=== PATIENT | male | born 1950 | race Caucasian/White ===

== ENCOUNTER → 2022-01-08 09:09 | Outpatient (BNVA) | payer MEDICARE, OTHER, SELFPAY | PROVIDERS: Referring Provider Family Medicine; Visit Provider Orthopaedic Surgery | DX: M17.11 Unilateral primary osteoarthritis, right knee (principal); M25.569 Pain in unspecified knee | CPT/HCPCS: 73560; 73565; 99203; 99204 ==

== ENCOUNTER 2022-02-10 12:18 | Observation (INO) | payer MEDICARE, OTHER, SELFPAY ==
--- NOTE | 2022-02-06 13:24 | ECG_ITS ---
[facility] Test Date: 2022-02-06 Pat Name: Dylon Garcia Department: Room: Gender: Male Pharmacy Informaticist: : 1950 Requested By: Armani Nunez Order Number: [id number] Lauryn MD: Justus Robertson M.D. Measurements Intervals [place] Rate: 77 P: 74 UT: 227 QRS: -21 QRSD: 89 T: 51 QT: 377 QTc: 428 Interpretive Statements SINUS RHYTHM WITH FIRST DEGREE AV BLOCK LOW QRS VOLTAGE IN PRECORDIAL LEADS [QRS DEFLECTION < 1.0 mV IN CHEST LEADS] ANTERIOR MYOCARDIAL INFARCTION , PROBABLY OLD [40+ ms Q WAVE AND/OR ST/T ABNORMALITY IN V3/V4] No previous ECG available for comparison Electronically Signed On 02-06-2022 17:15:15 CDT by Justus Robertson M.D. [id number]
[2022-02-06 13:29] VITALS: BMI 35.7
--- NOTE | 2022-02-06 14:14 | P.ANESASSM_ITS ---
Pre-Anesthetic Assessment Height/Weight: Height 1.73 m Weight 106.594 kg Operation Date: 02/10/22 09:40 Proposed Procedures p Right Total Knee Arthroplasty 27670/M17.11(Right) - Tyrese Barkley MD Familial anesthetic complications: None Was Beta Rogelio taken within 24 hours: N/A Was Clonidine taken within 24 hours: N/A Social No alcohol and No tobacco Exam alert, oriented x 3, clear to auscultation bilaterally and regular rate & rhythm Airway Submandibular: within normal limits Cervical ROM: within normal limits Mallampati: Class II Dentition: false Metabolic Diabetes Mellitus and Morbid Obesity [facility] Lower Back Pain and Osteoarthritis/DJD chronic pain/opioid Anesthetic Plan ASA status: 3 Anesthesia: Regional (specify below) (SAB with adductor blk) Medications/Allergies Home Medications Medication Instructions Recorded Confirmed Last Taken Type gabapentin 300 mg capsule 300 mg PO BID 01/08/22 02/06/22 Unknown History glipizide 10 mg tablet 10 mg PO BID 01/08/22 02/06/22 Unknown History metformin 500 mg tablet 500 mg PO BID 01/08/22 02/06/22 Unknown History semaglutide 1 mg/dose (4 mg/3 mL) 1 mg SUBCUT DIRECTED 01/08/22 02/06/22 Unknown History subcutaneous pen injector (Ozempic) tramadol 50 mg tablet 50 mg PO Q6H PRN 01/08/22 02/06/22 Unknown History hydrocodone 10 mg-acetaminophen 1 tab PO Q6H 02/06/22 02/06/22 Unknown History 325 mg tablet Allergies Allergy/AdvReac Type Severity Reaction Status Date / Time ampicillin Allergy ADR-Fatigue Verified 01/08/22 09:13 d [facility] Anesthesia Social History Smoking and tobacco status: never smoked Data Anesthesia : 02/06/22 13:48 Cardiac Studies: No Data to Display
[2022-02-10] VITALS (10 sets, daily range): BP systolic 119–160; BP diastolic 62–86; PULSE 69–96; RESP 16–18; TEMP 36.4–36.6; O2SAT 92–95
[2022-02-10] MEDS: gabapentin 300 mg Capsule PO ×2 (07:06→17:23)
--- NOTE | 2022-02-10 07:20 | P.HP_ITS ---
Same Day Surgery H&P Indication for Procedure/HPI DATE OF PROCEDURE: February 10, 2022 CHIEF COMPLAINT/INDICATIONFOR SURGICAL PROCEDURE: Osteoarthritis right knee here for right total knee arthroplasty PREOP DIAGNOSIS: Osteoarthritis Right knee. PLANNED PROCEDURE: Operation Date: 02/10/22 09:40 Proposed Procedures p Right Total Knee Arthroplasty 45758/M17.11(Right) - Tyrese Barkley MD 71-year-old here for right total knee arthroplasty. Long history of right knee pain arthroscopy 10 years ago complicated by infection has failed injections and medications. Here for elective right total knee arthroplasty Medications/Allergies* Home Medications Medication Instructions Recorded Confirmed Type gabapentin 300 mg capsule 300 mg PO BID 01/08/22 02/10/22 History glipizide 10 mg tablet 10 mg PO BID 01/08/22 02/10/22 History metformin 500 mg tablet 500 mg PO BID 01/08/22 02/10/22 History semaglutide 1 mg/dose (4 mg/3 mL) 1 mg SUBCUT DIRECTED 01/08/22 02/10/22 History subcutaneous pen injector (Ozempic) tramadol 50 mg tablet 50 mg PO Q6H PRN 01/08/22 02/10/22 History hydrocodone 10 mg-acetaminophen 1 tab PO Q6H 02/06/22 02/10/22 History 325 mg tablet Allergies/Adverse Reactions Allergy/AdvReac Type Severity Reaction Status Date / Time ampicillin Allergy ADR-Fatigue Verified 01/08/22 09:13 d Pertinent History/Comorbid Conditions* Social History Smoking and tobacco status: never smoked Pertinent Exam Findings alert, oriented x 3, clear to auscultation bilaterally, regular rate & rhythm and operative site marked Recommendations Surgery/Procedure today Coding Level of Care Code Acute Print Line Inspector for Alejandrina Zamora
[2022-02-10] MEDS: CELEcoxib 200 mg Capsule 400 MG PO (07:31)
[2022-02-10] MEDS: acetaminophen 500 mg Tablet 1000 MG PO ×2 (07:32→15:29)
[2022-02-10] MEDS: oxyCODONE 20 mg ER (12 HR) Tablet PO (07:32)
[2022-02-10] MEDS: sodium chloride 0.9% 1,000 ML 30 ML IV (07:51)
[2022-02-10 08:01] LABS: Glucose Point of Care 243 mg/dL (70-110)
--- NOTE | 2022-02-10 08:08 | P.ANESUD_ITS ---
Pre-Anesthetic Update Pre-Anesthetic Assessment: Date of Surgery/Procedure: 02/10/22 Preop Trinh gnosis: Osteoarthritis Right knee. Proposed Procedure: Operation Date: 02/10/22 09:40 Proposed Procedures p Right Total Knee Arthroplasty 36799/M17.11(Right) - Tyrese Barkley MD Any changes to Pre-Anesthetic Assessment?: No Last Intake: Intake Last Liquid Date 02/09/22 Last Liquid Time 23:00 Last Solid Date 02/09/22 Last Solid Time 15:00 Vitals: Oxygen Delivery Pa thod 02/10/22 07:36 Exam: Pre-Anes Outpt Exam: alert, oriented x 3, clear to auscultation bilaterally and regular rate & rhythm Cardiac Studies: No Data to Display
--- NOTE | 2022-02-10 08:09 | ANES.PROC ---
Anesthesia Procedures Procedure/Date: 02/10/22 Nerve Block ^: Nerve Block 1: Main Anesthesia: spinal anesthesia block Time Out Performed: Yes Consent: requested by attending/covering physician, from patient, risks and benefits reviewed and patient agrees to proceed Nerve block location: adductor canal (R) Anesthesia monitors applied: pulse oximetry, EKG, BP cuff and oxygen Nerve block position: supine Anesthetic Used: ropivicaine 0.5% (30) and with decadron (4 mg) Ultrasound used to: recognize landmarks and visualize and ID femerol nerve Nerve Stimulator Used?: No Interscalene/Femoral BLK: 4 stimuplex 21 g needle used for position and inplane approach, visualize local anesthetic spread and no vascular puncture identified Injection: neg aspiration of heme Patient Tolerated Procedure: well Complications: none
[2022-02-10] MEDS: insulin regular-human 100 units/1 mL 10 UNIT IVP (08:15)
[2022-02-10 09:33] LABS: Glucose Point of Care 230 mg/dL (70-110)
[2022-02-10] MEDS: tranexamic acid 1,000 mg/10mL SDV 1000 MG IV (10:00)
[2022-02-10] MEDS: tranexamic acid 1,000 mg/10mL SDV 1000 MG XX (10:21)
[2022-02-10] MEDS: EPINEPHrine 1 mg/mL INJ XX (10:22)
[2022-02-10] MEDS: ketorolac 30 mg/mL INJ XX (10:22)
--- NOTE | 2022-02-10 11:47 | P.OP_ITS ---
Operative Report Date of procedure: February 10, 2022 Pre-op diagnosis: Preop Diagnosis Osteoarthritis Right knee. Post-op diagnosis: same Post-op diagnosis: Same Post-op findings: Same Procedure done: Right total knee arthroplasty Implants: Shannan total knee arthroplasty components were used includin) Size 5 triathalon cruciate retaining femoral component 2) Size 5 Tritanium tibial component 3) 32 mm /10 mm thickness Tritanium asymetric patella 4) Size 5/11 mm thickness CR tibial bearing insert Pathology: none sent Surgeon: Tyrese Barkley Anesthesia: Nerve Block (Spinal, adductor canal block) Estimated blood loss (mL): 100 Findings: The patient had eburnated bone over the medial femoral condyle medial tibial plateau patella and trochlea Condition: stable Disposition: PACU Procedure: The patient was taken to the operating room. Patient was given 1 g of tranexamic acid . The above anesthesia provided by the anesthesia service. A timeout was performed. The patient was prepped and draped in the usual fashion with the lower extremity exposed. A anterior incision was made, midline, from a point proximal to the patella to the distal tibial tubercle. The knee was entered through a medial parapatellar approach. The patella could be displaced laterally and the knee flexed. The patellar fat pad was resected to provide better visibility. Retractors were placed medially and laterally adjacent to the tibial plateau. The femoral canal was drilled in line with the longitudinal axis of the femur. Intramedullary femoral guide for used to make a distal femoral cut in 5 degrees of valgus, resecting 8 mm from the more prominent condyle. Next the extra medullary tibial guide was placed in alignment with the longitudinal axis of the tibia. The cutting guides were set to remove just over 9 mm from the high tibial plateau. The proximal tibia was then cut. The femoral measuring guide was then placed over the distal femur. Rotation was verified checking the relationship of the guide to the condyle and the trochlear groove. The femur was measured and cut for the desired femoral component. The desired tibial baseplate was then chosen. A trial reduction with the femur tibial baseplate and polyethylene was done, assuring that the knee was stable throughout full motion. Ligament balancing involved nothing more than a release of the deep medial collateral ligament and resection of medial osteophyte tibia was prepared for the tibial baseplate. Patellar thickness was then measured. The patella was cut removing articular cartilage and prepared for appropriate size patellar button. surfaces were cleaned with a gentamicin solution. The femur tibia and patella were then press- fit into place. The posterior capsule and collateral ligaments were then injected with a solution of 100 mL of 0.2% ropivacaine, 1 mL of a 1:1000 epinephrine solution, 30 mg of Toradol, and 1 g of tranexamic acid. Final polyethylene component was then snapped into place into the tibia. The extensor retinaculum was closed with a running 1 Stratafix interrupted 1 Ethibond. The subcutaneous tissues were closed with 2-0 Vicryl and the skin was closed with a running 4-0 Stratafix. The wound was covered with a Dermabond Prineo dressing. It was covered with 4xrs and a compressive Tubigauze was applied. The patient was taken to recovery room in stable condition.
--- NOTE | 2022-02-10 11:53 | XRR_ITS ---
PROCEDURE INFORMATION: Exam: XR Right Knee Exam date and time: 02/10/2022 12:52 PM Age: 71 years old Clinical indication: Device placement; Joint replacement hardware; Prior surgery; Surgery date: Post-operative (0-2 days); Additional info: Right total knee arthroplasty TECHNIQUE: Imaging protocol: XR Right knee. Views: 1 or 2 views. COMPARISON: CR (KNEE LAT, KNEE, KNEE LAT) 01/08/2022 9:21 AM FINDINGS: Bones/joints: The patient is status post right total knee arthroplasty with patellar resurfacing. No evidence of hardware related complication. No fracture or dislocation. Expected postoperative soft tissue changes noted. Soft tissues: See Bones/joints finding. XR/XR knee RT 1-2V [id number] IMPRESSION: Status post right total knee arthroplasty, without evidence of hardware related complication.
[2022-02-10 12:09] LABS: Glucose Point of Care 269 mg/dL (70-110)
[2022-02-10] MEDS: insulin lispro 100 unit/1 mL SUBCUT ×3 (13:09→21:27)
--- NOTE | 2022-02-10 14:11 | ANE.PACU2 ---
Inpatient post-anesthesia follow up: Airway intact: Yes Vital signs: Temperature 97.9 F Pulse Rate 72 Respiratory Rate 18 Blood Pressure 141/79 Pulse Oximetry 93 Oxygen Delivery Me thod Room Air Oxygen Flow Rate 5 Fraction of Inspir ed Oxygen Hydration adequate: Yes Nausea and vomiting: No Pain level: 2 Mental status: Baseline
[2022-02-10 16:58] LABS: Glucose Point of Care 176 mg/dL (70-110)
[2022-02-10] MEDS: CELEcoxib 200 mg Capsule PO (21:15)
[2022-02-10 21:20] LABS: Glucose Point of Care 491 mg/dL (70-110)
[2022-02-11] MEDS: acetaminophen 500 mg Tablet 1000 MG PO ×2 (00:36→08:50)
[2022-02-11] MEDS: sodium chloride 0.9% 1,000 ML 100 ML IV (00:37)
[2022-02-11 03:14] VITALS: BP 150/79; PULSE 105; RESP 16; TEMP 36.9; O2SAT 95
[2022-02-11 03:15] VITALS: BP 167/87; PULSE 84; RESP 16; TEMP 36.4; O2SAT 94
[2022-02-11 04:00] VITALS: BP 148/80; PULSE 90; RESP 14; TEMP 36.8; O2SAT 95
[2022-02-11 04:34] LABS: Hemoglobin 12.5 g/dL (11.7-16.6)
--- NOTE | 2022-02-11 07:17 | P.DS_ITS ---
Discharge Providers Date of Admission: 02/10/22 12:18 Date of Discharge: February 11, 2022 Attending Provider at Admission: Tyrese Villalobos MD Attending Provider at Discharge: Tyrese Villalobos MD Primary Care Provider: Mony Givens DO Diagnoses at Discharge Discharge Diagnosis (1) Osteoarthritis of right knee: Status: Acute (2) Status post total right knee replacement: Status: Acute (3) Diabetes: Status: Acute Reason for Visit Reason for Visit: Brief History: Mr. Garcia with progressive right knee pain. He failed previous medical management including narcotics and a distant knee arthroscopy. He was admitted for elective right total knee arthroplasty Hospital Course Hospital Course The patient tolerated surgery well. They remained hemodynamically stable. They was begun on aspirin and Kytril compression dressing for DVT prophylaxis. The patient was mobilized with therapy beginning the day of surgery and by the first postoperative day independent with the walker. As the pain was adequately controlled and they were fully mobile they were discharged home. Physical Exam Narrative: On the day of discharge the knee incision was clean. They had no drainage. There is minimal swelling in the thigh and knee and the calf. No distal neurovascular deficits were noted Urinary Catheter Management: Shrestha: Cath Placed During This Visit: yes Reason for Continuing Indwelling Catheter: Required Immobilization for Trauma or Surgery or Anesthesia Urinary Catheter Date of Insertion: 02/10/22 Urinary Catheter Time of Insertion: 10:00 Discharge Data Studies Completed and Pending Completed Studies During Hospitalization Category Date Time Status XR knee RT 1-2V 26511 Stat Exams 02/10/22 11:53 Completed Radiology Impressions Knee X-Ray 02/10/22 11:53 IMPRESSION: Status post right total knee arthroplasty, without evidence of hardware related complication. Laboratory Results Hgb 12.5 g/dL (11.7-16.6) 02/11/22 04:15 Sodium Cancelled 02/06/22 13:48 Potassium Cancelled 02/06/22 13:48 Chloride Cancelled 02/06/22 13:48 Carbon Dioxide Cancelled 02/06/22 13:48 Anion Gap Cancelled 02/06/22 13:48 BUN Cancelled 02/06/22 13:48 Creatinine Cancelled 02/06/22 13:48 GFR Calculation Cancelled 02/06/22 13:48 Glucose Cancelled 02/06/22 13:48 POC Glucose 491 mg/dL (70-110) H 02/10/22 21:12 Calculated Osmolality Cancelled 02/06/22 13:48 Calcium Cancelled 02/06/22 13:48 Vitals Last Vital Signs Temp 98.3 F 02/11/22 04:00 Pulse 90 02/11/22 04:00 Resp 14 02/11/22 04:00 BP 148/80 02/11/22 04:00 Pulse Ox 95 02/11/22 04:00 Discharge Plan Discharge Patient Disposition: Home Condition: Stable Prescriptions: New oxycodone 5 mg Tablet 10 mg PO Q4H PRN (Reason: Severe Pain) 7 Days 0RF acetaminophen 500 mg Tablet 1,000 mg PO Q8H 14 Days Qty: 84 0RF celecoxib 200 mg Capsule 200 mg PO Q12H 14 Days Qty: 28 0RF aspirin 325 mg Tablet,Delayed Release (Dr/Ec) 325 mg PO DAILY 30 Days 0RF Continued metformin 500 mg tablet 500 mg PO BID 0RF glipizide 10 mg tablet 10 mg PO BID 0RF tramadol 50 mg tablet 50 mg PO Q6H PRN (Reason: Pain) 0RF gabapentin 300 mg capsule 300 mg PO BID 0RF Ozempic 1 mg/dose (4 mg/3 mL) pen injector 1 mg SUBCUT DIRECTED 0RF Rx Instructions: q 7 days Discontinued hydrocodone-acetaminophen 10-325 mg tablet 1 tab PO Q6H 0RF Discharge Orders: Discharge Order (Routine); Ordered 02/11/22 Ordered By: Tyrese Villalobos Referrals: Tyrese Villalobos MD [Physician] - 02/13/22 8:00 am Discharge Diet: Advance as tolerated Discharge Activity: Limit activity as instructed Patient Instructions: Revision Total Joint Arthroplasty (DC), Opioid Safety, Post Operative Pain Activity Restrictions/Additional Instructions: Okay to shower Keep Tubigauze sleeve in place for swelling. Okay to remove for hygiene. Apply FirstIce up to 20 min/hr for pain and swelling Take Celebrex twice a day for the next 15 days for pain , discontinue other anti-inflammatories Take Tylenol 500mg (2 tabs) as needed 3 times a day for mild pain take oxycodone for breakthrough pain. Exercises per physical therapy. May weight-bear as tolerated on total knee arthroplasty IF HAVE ANY PROBLEMS OR QUESTIONS CALL [facility] AT AND ASK TO HAVE DR. VILLALOBOS PAGED. Discharge Attestations Time Spent in Discharge Care*: other Quality Metrics Clinical Quality Measures [ No reported AMI, CVA or VTE this stay] Coding Level of Care Code Acute [facility] note Diagnoses Osteoarthritis of right knee M17.11 Status post total right knee replacement Z96.651 Diabetes E11.9
[2022-02-11 07:54] LABS: Glucose Point of Care 224 mg/dL (70-110)
[2022-02-11] MEDS: insulin lispro 100 unit/1 mL SUBCUT (08:50)
[2022-02-11] MEDS: CELEcoxib 200 mg Capsule PO (08:50)
[2022-02-11] MEDS: gabapentin 300 mg Capsule PO (08:50)
[2022-02-11] MEDS: aspirin 325 mg EC Tablet PO (09:06)
[2022-02-11] MEDS: docusate sodium 100 mg Capsule PO (09:06)
[2022-02-11 10:47] VITALS: RESP 18
[2022-02-11] MEDS: oxyCODONE 5 mg IR Tab/Cap 10 MG PO (10:47)
[2022-02-11 11:05] VITALS: BP 208/98; PULSE 80; RESP 20
[2022-02-11 11:15] VITALS: BP 208/98; PULSE 80; RESP 20
--- NOTE | 2022-02-11 11:19 | PC.NURSE ---
CALLED DR. VILLALOBOS ABOUT PATIENT'S BLOOD PRESSURE AND HE SAID THAT HE WAS GOOD FOR DISCHARGE AND TO FOLLOW UP WITH REGULAR DOCTOR ABOUT BLOOD PRESSURES.
== END 2022-02-11 11:15 | disposition home or self-care (01) ==
LOC: OBGYN 12:22
PROVIDERS: Admitting Provider Orthopaedic Surgery; PCP Family Medicine; Visit Provider Orthopaedic Surgery
PROC: (CPT 27447; principal; 2022-02-10 09:20)
DX: M17.11 Unilateral primary osteoarthritis, right knee (principal); E11.9 Type 2 diabetes mellitus without complications; E66.01 Morbid (severe) obesity due to excess calories; Z68.35 Body mass index [BMI] 35.0-35.9, adult; G89.29 Other chronic pain; Z79.891 Long term (current) use of opiate analgesic
CPT/HCPCS: 27447; 36415; 36416; 51702; 64447; 73560; 76942; 82962; 85018; 93005; 96372; 97110; 97116; 97161; 97165; C1776; G0378; J0171; J1100; J1580; J1815; J1885; J2250; J2704; J2795; J3010; J7030

== ENCOUNTER → 2022-03-19 12:54 | Outpatient (BNVA) | payer MEDICARE, OTHER, SELFPAY | PROVIDERS: Family Provider Orthopaedic Surgery; PCP Family Medicine; Visit Provider Orthopaedic Surgery | DX: Z96.651 Presence of right artificial knee joint (principal) | CPT/HCPCS: 73560; 73565; 99024 ==

== ENCOUNTER 2022-03-20 11:24 | Outpatient (RCR) | payer MEDICARE, OTHER, SELFPAY | END 2022-04-06 23:59 | disposition home or self-care (01) | LOC: SPT 11:24 | PROVIDERS: Absent Provider Orthopaedic Surgery; Family Provider Orthopaedic Surgery; PCP Family Medicine; Referring Provider Orthopaedic Surgery; Visit Provider Orthopaedic Surgery | DX: Z96.651 Presence of right artificial knee joint (principal) | CPT/HCPCS: 97110; 97161 ==

== ENCOUNTER 2022-04-07 06:00 | Outpatient (RCR) | payer MEDICARE, OTHER, SELFPAY | END 2022-04-22 23:59 | disposition home or self-care (01) | LOC: SPT 06:00 | PROVIDERS: PCP Family Medicine; Referring Provider Orthopaedic Surgery; Visit Provider Orthopaedic Surgery | DX: Z47.1 Aftercare following joint replacement surgery (principal); Z96.651 Presence of right artificial knee joint | CPT/HCPCS: 97110 ==

== ENCOUNTER → 2022-04-16 14:58 | Outpatient (BNVA) | payer MEDICARE, OTHER, SELFPAY | PROVIDERS: PCP Family Medicine; Visit Provider Orthopaedic Surgery | DX: Z96.651 Presence of right artificial knee joint (principal) | CPT/HCPCS: 99024 ==

== ENCOUNTER 2024-09-29 17:26 | Inpatient (IN) | payer MEDICARE, SELFPAY ==
[2024-09-29] VITALS (13 sets, daily range): BP systolic 97–161; BP diastolic 56–87; PULSE 69–96; RESP 16–18; TEMP 36.3–36.6; O2SAT 92–98; BMI 37.2
--- NOTE | 2024-09-29 17:36 | XRR_ITS ---
PROCEDURE INFORMATION: Exam: XR Chest Exam date and time: 09/29/2024 6:10 PM Age: 73 years old Clinical indication: Chest wall pain; Additional info: Chest pains and weakness upon standing today. TECHNIQUE: Imaging protocol: Radiologic exam of the chest. Views: 1 view. COMPARISON: No relevant prior studies available. FINDINGS: Lungs: Unremarkable. No consolidation. Pleural spaces: Unremarkable. No pleural effusion. No pneumothorax. Heart/Mediastinum: Unremarkable. No cardiomegaly. Bones/joints: Unremarkable. XR/XR chest 1V portable [id number] IMPRESSION: No acute findings.
--- NOTE | 2024-09-29 18:37 | ECG_ITS ---
[facility]: 2024-[facility]29 Pat Name: Dylon Garcia Department: Room: Gender: Male Legal Aide: : 1950 Requested By: Shakeel Agustin Order Number: [id number] Lauryn MD: Manuelito Ventura M.D. Measurements Intervals [place] Rate: 79 P: -1 ND: 209 QRS: 0 QRSD: 78 T: -22 QT: 377 QTc: 434 Interpretive Statements SINUS RHYTHM WITH OCCASIONAL SUPRAVENTRICULAR PREMATURE COMPLEXES LOW QRS VOLTAGE IN PRECORDIAL LEADS [QRS DEFLECTION < 1.0 mV IN CHEST LEADS] POSSIBLE ANTERIOR MYOCARDIAL INFARCTION , OF INDETERMINATE AGE [30 ms Q WAVE IN V3/V4, OR R < 0.2 mV IN V4] Compared to ECG 02/06/2022 12:36:16 First degree AV block no longer present Myocardial infarct finding still present Electronically Signed On 09-30-2024 08:58:26 [employer]LEOMARGARINE MAKER by Manuelito Ventura M.D. [id number]
[2024-09-29 20:04] LABS: Basophils % 0.1 %; Hematocrit 51.6 % (37-53); Lymphocytes # 1.9 10^3/uL (0.8-4.8); Lymphocytes % 27.2 %; Mean Corpuscular Hemoglobin 28.3 pg (27-33); Mean Corpuscular Volume 88.4 fl (82-101); Mean Platelet Volume 10.8 fL (7.4-10.4); Monocytes # 0.7 10^3/uL (0.2-0.9); Monocytes % 9.6 %; Neutrophils # 4.36 10^3/uL (1.8-7.7); Neutrophils % 62.8 %; Nucleated Red Blood Cells % 0 %; Platelet Count 239 10^3/cmm (157-399); Red Blood Count 5.84 10^6/uL (3.85-5.65); Red Cell Distribution Width 12.4 % (12.1-15.1); White Blood Count 6.95 10^3/uL (3.29-11.43)
[2024-09-29 20:04] LABS: Bilirubin Urine Negative (Negative); Blood Urine Negative (Negative); Glucose Urine UA 3+ (Normal); Ketones Urine 1+ (Negative); Leukocyte Esterase Urine Negative (Negative); Nitrate Urine Negative (Negative); Protein Urine Trace (Negative); Urine Appearance Clear (CLEAR); Urine Color Yellow (Yellow); Urobilinogen Urine 0.2 mg/dL (Negative)
[2024-09-29 20:09] LABS: Add Urine Microscopic? YES
[2024-09-29 20:18] LABS: Alanine Aminotransferase 21 U/L (0-41); Albumin Level 4.3 g/dL (3.5-5.2); Alkaline Phosphatase 85 U/L (40-130); Anion Gap 27.4 (5-19); Aspartate Amino Transferase 36 U/L (0-40); Blood Urea Nitrogen 51 mg/dL (8-23); Calcium 9.4 mg/dL (8.5-10.5); Carbon Dioxide 16 mmol/L (22-29); Chloride 92 mmol/L (98-107); Creatinine Clr Calc Pharmacy 54.6199; Globulin 4.2 g/dL (1.3-4.6); Glucose 297 mg/dL (65-115); Lipase 43 U/L (13-60); Osmolality Calculated 297 mOsm/kg (285-295); Potassium 4.4 mmol/L (3.5-5.1); Sodium 131 mmol/L (136-145); Total Bilirubin 0.9 mg/dL (0.15-1.2); Total Protein 8.5 g/dL (6.6-8.7)
[2024-09-29 20:28] LABS: Specific Gravity, Urine 1.031 (1.005-1.030)
[2024-09-29 20:29] LABS: UA Manual Slide Review YES; UA Slide Review UA Slide Review Perf
[2024-09-29 20:30] LABS: Add Urine Culture? Yes; Bacteria Urine TRACE /hpf; Squamous Epithelial Cell Urine 0-4 /hpf (0-5)
--- NOTE | 2024-09-29 20:56 | CTR_ITS ---
PROCEDURE INFORMATION: Exam: CT Head Without Contrast Exam date and time: 09/29/2024 9:17 PM Age: 73 years old Clinical indication: Altered mental status/memory loss; Patient HX: General weakness with confusion. Frequent falls. ; Additional info: Encephalopathy, altered mental status TECHNIQUE: Imaging protocol: Computed tomography of the head without contrast. Radiation optimization: All CT scans at this facility use at least one of these dose optimization techniques: automated exposure control; mA and/or kV adjustment per patient size (includes targeted exams where dose is matched to clinical indication); or iterative reconstruction. COMPARISON: No relevant prior studies available. RADIATION DOSE METRICS: Total DLP (mGy-cm): 1125.23 FINDINGS: Brain: No acute intracranial hemorrhage. No acute territorial region of vazquez-white dedifferentiation. No extra-axial collection. No mass effect or midline shift. Mild burden of nonspecific white matter hypoattenuation, most commonly sequela of chronic microvascular ischemic change. Generalized parenchymal volume loss. Cerebral ventricles: No acute hydrocephalus. Paranasal sinuses: Mild mucosal thickening scattered throughout the paranasal sinuses. No fluid levels. Mastoid air cells: Visualized mastoid air cells are well aerated. Orbital cavities: No acute abnormality of the visualized orbits. Bones: No acute calvarial fracture. Soft tissues: No acute abnormality. CT/CT head wo con* [id number] IMPRESSION: No acute intracranial hemorrhage, evidence of acute territorial infarct, or mass effect.
--- NOTE | 2024-09-29 20:59 | ED_ITS ---
HPI - Altered Mental Status 2 General: Chief Complaint: Altered Mental Status Stated Complaint: ams Time Seen by Provider: 09/29/24 20:28 History of Present Illness: 73-year-old man who presents emergency r oom with worsening confusion over the last several days. He has a history of diabetes and obesity. Family says he has had episodes at night where he is called and been extremely confused. Particularly last night. He finally said today he needed to come to the emergency room. Currently now he is close to his baseline. He is some worsening forgetfulness at this time and some mild confusion. He is alert and oriented however. Sugar has been high lately. He has been complaining of orthostasis and dizziness. No focal motor deficits. No known fevers. No abdominal pain. No chest pain. Related Data Home Medications Medication Instructions Recorded Confirmed gabapentin 300 mg capsule 300 mg PO BID 01/08/22 04/16/22 glipizide 10 mg tablet 10 mg PO BID 01/08/22 04/16/22 metformin 500 mg tablet 500 mg PO BID 01/08/22 04/16/22 semaglutide 1 mg/dose (4 mg/3 mL) 1 mg SUBCUT DIRECTED 01/08/22 04/16/22 subcutaneous pen injector (Ozempic) tramadol 50 mg tablet 50 mg PO Q6H PRN Pain 01/08/22 04/16/22 Previous Rx's Medication Instructions Recorded oxycodone 5 mg tablet 5 mg PO Q4H PRN pain 7 days #30 02/20/22 tabs Allergies Allergy/AdvReac Type Severity Reaction Status Date / Time ampicillin Allergy ADR-Fatigue Verified 09/29/24 18:35 d Review of Systems 2 Narrative: Constitutional symptoms: Negative except as documented in HPI. Skin symptoms: Negative except as documented in HPI. Eye symptoms: Negative except as documented in HPI. ENMT symptoms: Negative except as documented in HPI. Respiratory symptoms: Negative except as documented in HPI. Cardiovascular symptoms: Negative except as documented in HPI. Gastrointestinal symptoms: Negative except as documented in HPI. Genitourinary symptoms: Negative except as documented in HPI. Musculoskeletal symptoms: Negative except as documented in HPI. Neurologic symptoms: Negative except as documented in HPI. Psychiatric symptoms: Negative except as documented in HPI. Endocrine symptoms: Negative except as documented in HPI. PFSH ED 2 PFSH: Medical History Diabetes Social History Smoking and tobacco/nicotine status: never used tobacco/nicotine Physical Exam 2 Narrative: General: Alert, no acute distress. Skin: Warm, dry. Head: Normocephalic, atraumatic. Neck: Supple, trachea midline. Eye: Extraocular movements are intact. Ears, nose, mouth and throat: mucosa moist. Cardiovascular: Regular, Normal peripheral perfusion. Respiratory: Lungs are clear to auscultation, respirations are non-labored, breath sounds are equal, Symmetrical chest wall expansion. Gastrointestinal: Soft, Nontender, Non distended Musculoskeletal: Normal ROM, no deformity. Neurological: Alert and oriented, No focal neurological deficit observed. Psychiatric: Cooperative, appropriate mood & affect. Course 2 Vital Signs: Vital signs: Vital Signs Temperature 97.4 F L 09/29/24 18:28 Pulse Rate 96 09/29/24 18:28 Respiratory Rate 16 09/29/24 18:28 Blood Pressure 131/66 09/29/24 22:00 Pulse Oximetry 94 09/29/24 22:00 MDM - Altered Mental Status Medical Decision Making Medical decision making: Differential diagnosis including but not limited to and based on the above HPI, review of systems and physical exam: In this patient with altered mental status: Stroke. Hypoglycemia. Metabolic encephalopathy. Infections such as pneumonia, urinary tract infection, Covid-19, Influenza. Electrolyte abnormalities such as hypernatremia. Renal failure / uremia. Hepatic encephalopathy. Hypoxemia. Hypercapnic respiratory failure. Psychosis. Drug or alcohol intoxication. Medication overdose. Orders placed to evaluate differential diagnosis based on the above differential, HPI and physical exam Lab Review: Laboratory results were reviewed and interpreted by myself the emergency room physician. No leukocytosis. No anemia. He does have significant elevation in his BUN and creatinine at 50 and 1.5. Glucose is elevated at 300. Bicarb is low at 16. AB.3 12/03/1979 on room air. I reviewed the patient's medical record. I obtain records from [facility]. He had an appointment a few months back and his BUN/creatinine were normal at that time. 22 and 1.07. Reexamination: Patient remained stable. No increased work of breathing. No altered mental status. No focal motor deficits. Consultation: I spoke with the hospitalist on-call Dr. Noel who agrees to admission. Assessment and plan: Acute renal insufficiency Hyperglycemia Dehydration Poorly controlled diabetes Encephalopathy ?Normal saline bolus in the emergency room. -I discussed the patient with the hospitalist on-call who is admitting the patient. - Discussed findings and plan with patient. Answered any questions. - All laboratory values were reviewed and interpreted personally by myself, the ER physician - All imaging was reviewed and interpreted personally by myself, the ER physician. - Evaluation and treatment of this problem were appropriate in the emergency setting Lab Data 09/29/24 19:52 09/29/24 19:52 Radiology Impressions Chest X-Ray 09/29/24 17:36 IMPRESSION: No acute findings. Head CT 09/29/24 20:56 IMPRESSION: No acute intracranial hemorrhage, evidence of acute territorial infarct, or mass effect. Laboratory Results WBC 6.95 10^3/uL (3.29-11.43) 09/29/24 19:52 RBC 5.84 10^6/uL (3.85-5.65) H 09/29/24 19:52 Hgb 16.50 g/dL (11.27-16.99) 09/29/24 19:52 Hct 51.6 % (37-53) 09/29/24 19:52 MCV 88.4 fl (82-101) 09/29/24 19:52 MCH 28.3 pg (27-33) 09/29/24 19:52 MCHC 32.0 g/dL (30-55) 09/29/24 19:52 RDW 12.4 % (12.1-15.1) 09/29/24 19:52 Plt Count 239 10^3/cmm (157-399) 09/29/24 19:52 MPV 10.8 fL (7.4-10.4) H 09/29/24 19:52 Neut % (Auto) 62.8 % 09/29/24 19:52 Lymph % (Auto) 27.2 % 09/29/24 19:52 [place] % (Auto) 9.6 % 09/29/24 19:52 Eos % (Auto) 0.0 % 09/29/24 19:52 Baso % (Auto) 0.1 % 09/29/24 19:52 Neut # (Auto) 4.36 10^3/uL (1.8-7.7) 09/29/24 19:52 Lymph # (Auto) 1.9 10^3/uL (0.8-4.8) 09/29/24 19:52 [place] # (Auto) 0.7 10^3/uL (0.2-0.9) 09/29/24 19:52 Eos # (Auto) 0.0 10^3/uL (0.0-0.8) 09/29/24 19:52 Baso # (Auto) 0.0 10^3/uL (0.0-0.1) 09/29/24 19:52 Nucleated RBC % (auto) 0 % 09/29/24 19:52 Nucleated RBCs # 0.0 /100WBC 09/29/24 19:52 Specimen Type Arterial 09/29/24 21:07 Sample Site Brachial, right 09/29/24 21:07 ABG pH 7.33 (7.35-7.45) L 09/29/24 21:07 ABG pCO2 27.8 mmHg (35-45) L 09/29/24 21:07 ABG pO2 80.3 mmHg (80.0-100.0) 09/29/24 21:07 ABG HCO3 14.6 mmol/L (22-26) L 09/29/24 21:07 ABG O2 Saturation 96.4 09/29/24 21:07 ABG Base Excess -9.6 mmol/L (-2.0-2.0) L 09/29/24 21:07 Tutu Test N/a 09/29/24 21:07 A-a O2 Gradient 4.6 mmHg (5-10) L 09/29/24 21:07 Hematocrit 48.1 % (42-52) 09/29/24 21:07 Hgb O2 Saturation 94.7 % (95-100) L 09/29/24 21:07 Carboxyhemoglobin 1.0 %THgb (0.4-20.1) 09/29/24 21:07 Methemoglobin 0.7 % (0.4-1.5) 09/29/24 21:07 Total Hemoglobin 15.7 g/dL (14-18) 09/29/24 21:07 Sodium 133.0 mmol/L (131-143) 09/29/24 21:07 Potassium 4.7 mmol/L (3.5-5.0) 09/29/24 21:07 Glucose 298.0 mg/dL (70-115) H 09/29/24 21:07 Ionized Calcium 1.2 mmol/L (1.1-1.4) 09/29/24 21:07 O2 Delivery Device Room air 09/29/24 21:07 [employer]inery Operator ID [email or web address] 09/29/24 21:07 Sodium 131 mmol/L (136-145) L 09/29/24 19:52 Potassium 4.4 mmol/L (3.5-5.1) 09/29/24 19:52 Chloride 92 mmol/L (98-107) L 09/29/24 19:52 Carbon Dioxide 16 mmol/L (22-29) L 09/29/24 19:52 Anion Gap 27.4 (5-19) H 09/29/24 19:52 BUN 51 mg/dL (8-23) H 09/29/24 19:52 Creatinine 1.5 mg/dL (0.7-1.2) H 09/29/24 19:52 GFR Calculation Not Reportable 09/29/24 19:52 Glucose 297 mg/dL (65-115) H 09/29/24 19:52 Calculated Osmolality 297 mOsm/kg (285-295) H 09/29/24 19:52 Lactic Acid 1.8 mmol/L (0.5-2.2) 09/29/24 21:10 Calcium 9.4 mg/dL (8.5-10.5) 09/29/24 19:52 Total Bilirubin 0.9 mg/dL (0.15-1.2) 09/29/24 19:52 AST 36 U/L (0-40) 09/29/24 19:52 ALT 21 U/L (0-41) 09/29/24 19:52 Alkaline Phosphatase 85 U/L (40-130) 09/29/24 19:52 Total Protein 8.5 g/dL (6.6-8.7) 09/29/24 19:52 Albumin 4.3 g/dL (3.5-5.2) 09/29/24 19:52 Globulin 4.2 g/dL (1.3-4.6) 09/29/24 19:52 Lipase 43 U/L (13-60) 09/29/24 19:52 Urine Color Yellow (Yellow) 09/29/24 19:48 Urine Appearance Clear (CLEAR) 09/29/24 19:48 Urine pH 5.0 (5-7) 09/29/24 19:48 Ur Specific [place] 1.031 (1.005-1.030) H 09/29/24 19:48 Urine Protein Trace (Negative) A 09/29/24 19:48 Urine Glucose (UA) 3+ (Normal) H 09/29/24 19:48 Urine Ketones 1+ (Negative) H 09/29/24 19:48 Urine Blood Negative (Negative) 09/29/24 19:48 Urine Nitrate Negative (Negative) 09/29/24 19:48 Urine Bilirubin Negative (Negative) 09/29/24 19:48 Urine Urobilinogen 0.2 mg/dL (Negative) 09/29/24 19:48 Ur Leukocyte Esterase Negative (Negative) 09/29/24 19:48 Urine RBC 5-10 /hpf (0-2) H 09/29/24 19:48 Urine WBC None /hpf (0-5) 09/29/24 19:48 Ur Squamous Epith Cells 0-4 /hpf (0-5) H 09/29/24 19:48 Amorphous Sediment Not Reportable 09/29/24 19:48 Urine Bacteria Trace /hpf (NONE) 09/29/24 19:48 Urine Yeast 1+ /hpf H 09/29/24 19:48 All radiology interpretation(s) finalized by discharge Discharge Plan Discharge Patient Disposition: Admitted As Inpatient Clinical Impression: Acute uremia, Acute renal insufficiency, Hyperglycemia, Poorly controlled diabetes mellitus Condition: Stable Coding Level of Care Code ED Education Paraprofessional for Alejandrina Zamora
[2024-09-29 21:17] LABS: ABG PCO2 27.8 mmHg (35-45); ABG PH Result 7.33 (7.35-7.45); Alveolar-Arterial Oxygen Gradi 4.6 mmHg (5-10); Arterial Blood Gas Hematocrit 48.1 % (42-52); Base Excess ABG -9.6 mmol/L (-2.0-2.0); Blood Gas Sample Site Brachial, right; Blood Gas Sample Type Arterial; HCO3 ABG 14.6 mmol/L (22-26); HGB O2 Sat 94.7 % (95-100); Ionized Calcium Level - ABG 1.2 mmol/L (1.1-1.4); Methemoglobin 0.7 % (0.4-1.5); Oxygen Device ROOM AIR; Oxygen Saturation ABG 96.4; PO2 ABG 80.3 mmHg (80.0-100.0); Potassium Level - ABG 4.7 mmol/L (3.5-5.0); Total Hemoglobin 15.7 g/dL (14-18)
[2024-09-29 21:35] LABS: Lactic Sepsis W/Reflex 1.8 mmol/L (0.5-2.2)
[2024-09-29] MEDS: sodium chloride 0.9% 1,000 ML 999 ML IV (21:43)
--- NOTE | 2024-09-29 22:06 | PM.HP ---
Providers/Chief Complaint Admitting Physician: Erin Noel MD Primary Care Provider: Mony Givens DO Chief Complaint: ams History of Present Illness Dylon Garcia is a 73 yo man w/ diabetes who was brought to [facility]'s ED on 09/29/2024 by his son for falls, syncope, insomnia, generalized weakness, in the last week and this morning, a BG of 310. He sates that his [id number] had encouraged him to go to the doctor, but he was not ready; however, today, he was feeling worse instead of better, so he decided to go to [facility], who referred him to the hospital. He endorses a headache, poor appetite for the last month, but he states that his weight has been the same. He endorses blurry vision, He states that in the past month, anytime he exerts himself he feels non-pleuritic, substernal chest pain that radiates down both arms and improves when he sits down. He endorses dyspnea w/ the CP, but denies palpitations. He denies abd pain,n/v, 3-4episodes of watery melenic stools. He then changed and said that the dolor was dark brown. He denies fever, chills, symptoms. He states that he gets lonely because he lost his two years ago, but denies anxiety, depression, SI or HI. He tells me that he does not feel that the medications, prescribed to him is working. He tells me that he is on Toujeo 15 units daily. In the ED, his vital signs were within normal limits. His labs were significant for hyponatremia, and a possible MADONNA, Cr of 1.5, unclear baseline. CT head was negative. His CXR was also negative. Review of Systems Const: Reports: change in appetite (poor) and malaise; Denies: fever(s), chills, change in weight or diaphoresis Eyes: Reports: blurry vision ENMT: Reports: nasal discharge and nasal congestion; Denies: odynophagia or ear or mastoid pain Card: Reports: chest pain; Denies: palpitations, edema or swelling of feet/ankles Resp: Reports: dyspnea (whenever he coughs) and wheezing; Denies: non-productive cough GI: Reports: melena; Denies: abdominal pain, nausea, vomiting or hematochezia : Denies: difficulty urinating, dysuria, urinary frequency or urinary urgency Musc: Reports: other (no myalgias); Denies: joint pain Skin/Breast: Denies: rash or new lesions Neuro: Reports: headache(s), frequent falls and other Psych: Denies: anxiety, depression, suicidal ideation or homicidal ideation Endo: Reports: cold intolerance; Denies: heat intolerance [place]/Lymph: Denies: easy bruising or easy bleeding Medications/Allergies Home Medications Medication Instructions Recorded Confirmed Last Taken Type gabapentin 300 mg capsule 300 mg PO BID 01/08/22 04/16/22 02/10/22 History glipizide 10 mg tablet 10 mg PO BID 01/08/22 04/16/22 02/09/22 History metformin 500 mg tablet 500 mg PO BID 01/08/22 04/16/22 02/09/22 History semaglutide 1 mg/dose (4 mg/3 mL) 1 mg SUBCUT DIRECTED 01/08/22 04/16/22 02/09/22 History subcutaneous pen injector (Ozempic) tramadol 50 mg tablet 50 mg PO Q6H PRN Pain 01/08/22 04/16/22 02/09/22 History oxycodone 5 mg tablet 5 mg PO Q4H PRN pain 7 days #30 02/20/22 04/16/22 Unknown Rx tabs Allergies Allergy/AdvReac Type Severity Reaction Status Date / Time ampicillin Allergy ADR-Fatigue Verified 09/29/24 18:35 d PFSH Acute PFSH: Medical History (Updated 09/30/24 @ 05:53 by Mireya Noel MD) Head injury Cervical vertebral fracture Diabetes Surgical History (Updated 09/30/24 @ 04:45 by Mireya Noel MD) History of cataract surgery Status post right knee replacement Family History (Updated 09/30/24 @ 04:45 by Mireya Noel MD) Mother Cancer Social History (Updated 09/30/24 @ 04:46 by Mireya Noel MD) Smoking and tobacco/nicotine status: never used tobacco/nicotine Alcohol intake: never Substance/Drug Use: never Vitals/I&O/Wt Last Vital Signs Temp 97.4 F L 09/29/24 18:28 Pulse 96 09/29/24 18:28 Resp 16 09/29/24 18:28 BP 130/66 09/29/24 18:28 Pulse Ox 96 09/29/24 18:28 Weight last 48 hrs Weight 111.13 kg Physical Exam Const: GENERAL APPEARANCE: cooperative and comfortable ORIENTATION/CONSCIOUSNESS: Yes awake, Yes oriented to person, Yes oriented to place and Yes oriented to time HENMT: HEAD & SCALP: normal to inspection, normocephalic and atraumatic NOSE: Normal external nose present EXTERNAL EAR: Yes external ears normal MOUTH: Normal oral and palatal mucosa present THROAT: posterior oropharynx normal Eye: OTHER: PERRL, EOMI, conjunctiva normal b/l Neck/C-Spine: GENERAL: Yes normal visual inspection and Yes trachea midline THYROID: Thyroid normal CAROTIDS: No bruit CERVICAL SPINE: Yes cervical ROM normal Lymph: OTHER: No cervical or supra clavicular LAD. Resp: OTHER: CTAB with no wheezes rales or rhonchi. Cardio: OTHER: RRR, no murmurs, rubs, gallops or clicks. 2+ radial and DP pulses appreciated. No carotid bruits bilaterally. GI: OTHER: BS+, NT, ND, no guarding, no rigidity, no rebound tenderness, no hepatosplenomegaly. Extremity: GENERAL: No clubbing, No cyanosis and No edema Neuro: CRANIAL NERVES: Yes CN normal except as noted SPEECH: speech normal SENSORY EXAM: No sensory level loss detected MOTOR EXAM: 5/5 motor strength present throughout and Normal motor muscle tone present throughout Psych: APPEARANCE: Yes grossly normal ATTITUDE: Yes calm and Yes engaged ACTIVITY/MOTOR BEHAVIOR: Yes appropriate eye contact SPEECH: Yes normal speech MOOD & AFFECT: Yes euthymic mood THOUGHT PROCESS: Normal thought process present THOUGHT CONTENT: Yes Normal thought content present ATTENTION/CONCENTRATION: Yes attention grossly intact Skin: GENERAL SKIN EXAM: no rashes or lesions noted Data 09/29/24 19:52 09/29/24 19:52 Micro: Microbiology 09/29/24 21:12 Blood Culture - Preliminary Blood SPECIMEN COLLECTED 09/29/24 21:10 Blood Culture - Preliminary Blood SPECIMEN COLLECTED A&P Assessment and plan (1) Acute renal insufficiency: (2) Poorly controlled diabetes mellitus: (3) Hyponatremia: Plan Dylon Garcia is a 73 yo man w/ diabetes who was brought to [facility]'s ED on 09/29/2024 by his son for falls, syncope, insomnia, generalized weakness, in the last week and this morning, a BG of 310. #Possible MADONNA: Unclear baseline. Consider reaching out to his PCP to obtain the last BMP on their file for him. Start NS at 125cc/hr #IDDM2: Gave Insulin lispro 10units subq x 1 and Insulin glargine 10units subq x 1. Start Insulin glargine 15units daily w/ medium dose SSI qAC and qHS. F/u A1c. #Hyponatremia: Likely hypovolemia. Continue to monitor #UTI: F/u UCx. Started Ceftriaxone DVT: Lovenox Attestations Medical Necessity Statement*: >2 midnights are needed for the patient's MADONNA, possible UTI, poorly controlled diabetes. Coding Level of Care Code 53171 Diagnoses Acute renal insufficiency N28.9 Poorly controlled diabetes mellitus E11.65 Hyponatremia E87.1
[2024-09-29] MEDS: insulin glargine 100 units/1 mL 10 UNIT SUBCUT (23:35)
[2024-09-29] MEDS: insulin lispro 100 unit/1 mL 10 UNIT SUBCUT (23:35)
[2024-09-29] MEDS: cefTRIAXone 1,000 mg SDV 1000 MG IVP (23:35)
[2024-09-29] MEDS: enoxaparin 40 mg/0.4 mL Syringe SUBCUT (23:35)
[2024-09-29] MEDS: sodium chloride 0.9% 1,000 ML 125 ML IV (23:36)
[2024-09-30 03:26] VITALS: BP 133/72; PULSE 80; RESP 16; TEMP 36.8; O2SAT 93
[2024-09-30] MEDS: acetaminophen 325 mg Tablet 650 MG PO (03:48)
[2024-09-30 04:29] LABS: Glucose Point of Care 141 mg/dL (70-110)
[2024-09-30 04:44] LABS: Basophils % 0.1 %; Hematocrit 44.9 % (37-53); Lymphocytes # 1.7 10^3/uL (0.8-4.8); Lymphocytes % 24.6 %; Mean Corpuscular HGB Conc 33.4 g/dL (30-55); Mean Corpuscular Hemoglobin 28.2 pg (27-33); Mean Corpuscular Volume 84.6 fl (82-101); Monocytes # 0.7 10^3/uL (0.2-0.9); Monocytes % 9.9 %; Neutrophils # 4.56 10^3/uL (1.8-7.7); Neutrophils % 65.1 %; Nucleated Red Blood Cells % 0 %; Platelet Count 186 10^3/cmm (157-399); Red Blood Count 5.31 10^6/uL (3.85-5.65); Red Cell Distribution Width 12.4 % (12.1-15.1)
[2024-09-30 05:12] LABS: Alanine Aminotransferase 18 U/L (0-41); Albumin Level 3.7 g/dL (3.5-5.2); Alkaline Phosphatase 70 U/L (40-130); Anion Gap 21.9 (5-19); Aspartate Amino Transferase 35 U/L (0-40); Blood Urea Nitrogen 49 mg/dL (8-23); Calcium 8.8 mg/dL (8.5-10.5); Carbon Dioxide 18 mmol/L (22-29); Chloride 99 mmol/L (98-107); Creatinine Clr Calc Pharmacy 63.0229; Globulin 3.1 g/dL (1.3-4.6); Glucose 136 mg/dL (65-115); Magnesium 2.1 mg/dL (1.7-2.3); Osmolality Calculated 295 mOsm/kg (285-295); Phosphorus 2.8 mg/dL (2.5-4.5); Potassium 3.9 mmol/L (3.5-5.1); Sodium 135 mmol/L (136-145); Thyroid Stimulating Hormone 1.44 uIU/mL (0.27-4.20); Total Bilirubin 0.6 mg/dL (0.15-1.2); Total Protein 6.8 g/dL (6.6-8.7)
--- NOTE | 2024-09-30 05:33 | US_ITS ---
WS: [id number] RENAL ULTRASOUND HISTORY: Possible MADONNA COMPARISON: None available. TECHNIQUE: 2-D and color Doppler imaging of the kidney submitted. Right kidney: 8.8 cm x 5.0 cm x 5.3 cm. Cortex: 1.2 cm Low normal size kidney. Mild increased echogenicity. No obstruction or mass. Left kidney: 10.8 cm x 5.2 cm x 7.1 cm. Cortex: 1.2 cm Normal size kidney with mild increased echogenicity. No obstruction or mass. Aorta: Normal. Urinary Bladder: Normal distention. US/US renal BI* [id number] IMPRESSION: 1. Mild chronic medical renal disease. 2. Low normal size RIGHT kidney. 3. No obstruction or mass.
[2024-09-30 05:51] LABS: Estmated Average Glucose 295; Hemoglobin A1C 11.9 % (4.0-6.0)
[2024-09-30 06:24] LABS: Glucose Point of Care 110 mg/dL (70-110)
[2024-09-30 08:00] VITALS: BP 148/51; PULSE 80; RESP 15; TEMP 36.7; O2SAT 95
[2024-09-30] MEDS: sodium chloride 0.9% 1,000 ML 125 ML IV ×2 (08:14→16:42)
[2024-09-30] MEDS: insulin glargine 100 units/1 mL 15 UNIT SUBCUT (09:34)
[2024-09-30 12:00] VITALS: BP 119/63; PULSE 67; RESP 14; TEMP 36.4; O2SAT 95
[2024-09-30 12:03] LABS: Glucose Point of Care 211 mg/dL (70-110)
[2024-09-30] MEDS: insulin lispro 100 unit/1 mL SUBCUT ×2 (12:28→21:01)
[2024-09-30] MEDS: enoxaparin 40 mg/0.4 mL Syringe SUBCUT (12:28)
[2024-09-30 16:00] VITALS: BP 125/73; PULSE 70; RESP 15; TEMP 36.7; O2SAT 92
[2024-09-30 17:22] LABS: Glucose Point of Care 107 mg/dL (70-110)
--- NOTE | 2024-09-30 17:31 | P.PN_ITS ---
Subjective 2 Subjective: Patient was seen this morning, he is alert and oriented x 3, following all commands he is a bit drowsy, responses are a bit elevated but overall he tells me he is doing well, no complaints no back pain, no nausea, no vomiting, no fever, he ambulates, no falls, he lives across his son Vitals/I&O/Wt Last Vital Signs Temp 98.1 F 09/30/24 16:00 Pulse 70 09/30/24 16:00 Resp 15 09/30/24 16:00 BP 125/73 09/30/24 16:00 Pulse Ox 92 09/30/24 16:00 O2 Del Method Room Air 09/30/24 16:00 09/30/24 09/30/24 09/30/24 06:59 14:59 22:59 Intake Total 1220 / 1220 2035 1000 / 3036 Balance 1220 / 1220 2035 1000 / 3036 Weight last 48 hrs Weight 111.13 kg Weight 111.13 kg Weight 111.13 kg Physical Exam 2 Const: COMMON NORMALS: no acute distress and patient oriented x3 Resp: COMMON NORMALS: normal respiratory effort, No retractions, No use of accessory muscles and clear to auscultation bilaterally AUSCULTATION: clear to auscultation bilaterally Cardio: COMMON NORMALS: regular rate, regular rhythm, S1 normal heart sound present and S2 normal heart sound present RATE: regular rate RHYTHM: r egular rhythm HEART SOUNDS: S1 normal heart sound present and S2 normal heart sound present GI: COMMON NORMALS: Normal to inspection, nondistended, normoactive bowel sounds present and non-tender Extremity: COMMON NORMALS: no pedal edema Neuro: COMMON NORMALS: patient oriented x3 Data 09/30/24 03:44 09/30/24 03:44 Micro: Microbiology 09/29/24 21:12 Blood Culture - Preliminary Blood SPECIMEN COLLECTED 09/29/24 21:10 Blood Culture - Preliminary Blood SPECIMEN COLLECTED A&P Assessment and plan (1) Acute renal insufficiency: (2) Poorly controlled diabetes mellitus: (3) Hyponatremia: Plan Dylon Garcia is a 73 yo man w/ diabetes who was brought to [facility]'s ED on 09/29/2024 by his son for falls, syncope, insomnia, generalized weakness, in the last week and this morning, a BG of 310. #Possible MADONNA: 1.3, iv fluids -renal us US/US renal BI* [id number] IMPRESSION: 1. Mild chronic medical renal disease. 2. Low normal size RIGHT kidney. 3. No obstruction or mass. #IDDM2: a1c 11.9 -lantus 15 units qam -LDSS #Hyponatremia: likely dehydration -IVF #UTI: -Ceftriaxone -follow urine culture DVT: Lovenox Attestations 2 Medical Necessity Statement*: Patient requires hospitalization for MADONNA, UTI, hyponatremia Diagnoses Acute renal insufficiency N28.9 Poorly controlled diabetes mellitus E11.65 Hyponatremia E87.1
[2024-09-30] MEDS: gabapentin 300 mg Capsule PO (17:56)
[2024-09-30 19:43] LABS: C.Diff PCR (Lab) NEGATIVE (Negative)
[2024-09-30 19:46] VITALS: BP 128/70; PULSE 79; RESP 18; TEMP 36.8; O2SAT 95
[2024-09-30] MEDS: benzonatate 100 mg Capsule 200 MG PO (20:01)
[2024-09-30 20:51] LABS: Glucose Point of Care 311 mg/dL (70-110)
[2024-09-30] MEDS: cefTRIAXone 1,000 mg SDV 1000 MG IVP (22:13)
[2024-10-01] VITALS: BP 137/77; PULSE 72; RESP 20; TEMP 36.5; O2SAT 97
[2024-10-01] MEDS: sodium chloride 0.9% 1,000 ML 125 ML IV (02:26)
[2024-10-01 04:00] VITALS: BP 128/50; PULSE 73; RESP 18; TEMP 36.8; O2SAT 94
[2024-10-01 05:28] LABS: Basophils % 0.2 %; Hematocrit 41.7 % (37-53); Lymphocytes # 1.7 10^3/uL (0.8-4.8); Lymphocytes % 35.5 %; Mean Corpuscular HGB Conc 33.8 g/dL (30-55); Mean Corpuscular Hemoglobin 28.5 pg (27-33); Mean Corpuscular Volume 84.2 fl (82-101); Mean Platelet Volume 10.3 fL (7.4-10.4); Monocytes # 0.4 10^3/uL (0.2-0.9); Monocytes % 8.8 %; Neutrophils # 2.68 10^3/uL (1.8-7.7); Neutrophils % 55.1 %; Nucleated Red Blood Cells % 0 %; Platelet Count 175 10^3/cmm (157-399); Red Blood Count 4.95 10^6/uL (3.85-5.65); Red Cell Distribution Width 12.4 % (12.1-15.1); White Blood Count 4.87 10^3/uL (3.29-11.43)
[2024-10-01 05:59] LABS: Alanine Aminotransferase 17 U/L (0-41); Albumin Level 3.2 g/dL (3.5-5.2); Alkaline Phosphatase 61 U/L (40-130); Anion Gap 14.9 (5-19); Aspartate Amino Transferase 32 U/L (0-40); Blood Urea Nitrogen 25 mg/dL (8-23); Calcium 8.8 mg/dL (8.5-10.5); Carbon Dioxide 20 mmol/L (22-29); Chloride 109 mmol/L (98-107); Creatinine Clr Calc Pharmacy 85.0561; Glucose 82 mg/dL (65-115); Magnesium 1.9 mg/dL (1.7-2.3); Osmolality Calculated 293 mOsm/kg (285-295); Phosphorus 2.6 mg/dL (2.5-4.5); Potassium 3.9 mmol/L (3.5-5.1); Sodium 140 mmol/L (136-145); Total Bilirubin 0.6 mg/dL (0.15-1.2); Total Protein 6.2 g/dL (6.6-8.7)
[2024-10-01 06:36] LABS: Glucose Point of Care 97 mg/dL (70-110)
[2024-10-01 07:25] VITALS: BP 119/64; PULSE 78; RESP 16; TEMP 36.6; O2SAT 95
[2024-10-01] MEDS: sertraline 50 mg Tablet 25 MG PO (09:38)
[2024-10-01] MEDS: insulin glargine 100 units/1 mL 15 UNIT SUBCUT (09:39)
[2024-10-01] MEDS: gabapentin 300 mg Capsule PO (09:39)
[2024-10-01 11:42] VITALS: BP 162/84; PULSE 77; RESP 15; TEMP 36.7; O2SAT 98
[2024-10-01 11:56] LABS: Glucose Point of Care 226 mg/dL (70-110)
[2024-10-01] MEDS: insulin lispro 100 unit/1 mL SUBCUT (12:43)
[2024-10-01] MEDS: sodium chloride 0.9% 1,000 ML 75 ML IV (12:44)
[2024-10-01] MEDS: enoxaparin 40 mg/0.4 mL Syringe SUBCUT (12:44)
[2024-10-01] MEDS: benzonatate 100 mg Capsule 200 MG PO (12:47)
[2024-10-01] MEDS: ondansetron 2 mg/ML SDV 2 mL 4 MG IVP (13:26)
[2024-10-01] MEDS: HYDROcodone-acetaminophen 5-325 mg Tablet 2 TAB PO (13:26)
[2024-10-01 13:52] LABS: C.Diff PCR (Lab) NEGATIVE (Negative)
--- NOTE | 2024-10-01 14:32 | PM.DCS ---
Discharge Providers Date of Admission: 09/29/24 22:27 Date of Discharge: October 01, 2024 Attending Provider at Admission: Mireya Noel MD Attending Provider at Discharge: Johnson Webb MD Primary Care Provider: Mony Givens DO Diagnoses at Discharge Discharge Diagnosis (1) Acute renal insufficiency: Status: Acute (2) Poorly controlled diabetes mellitus: Status: Acute (3) Hyponatremia: Status: Acute Reason for Visit Reason for Visit: ams Hospital Course Hospital Course This is a 73-year-old male who presents [facility] for complaints of fall, weakness, elevated blood sugars For his UTI he was managed with IV antibiotics, discharged on p.o. antibiotics For his MADONNA received IV fluids, creatinine is improved For his hypovolemic hyponatremia received IV fluids, improved For his type 2 diabetes mellitus, blood sugars were monitored, continue home regimen, diabetic education, follow-up with primary care provider next week and Dr. Hayden in 2 weeks And orthostatic hypotension likely secondary to dehydration, received IV fluids, improved On discharge patient is ambulatory, alert oriented x 3, following all commands no complaints For his diarrhea, C. difficile has been negative twice Physical Exam Const: COMMON NORMALS: no acute distress and patient oriented x3 Resp: COMMON NORMALS: normal respiratory effort, No retractions, No use of accessory muscles and clear to auscultation bilaterally AUSCULTATION: clear to auscultation bilaterally Cardio: COMMON NORMALS: regular rate, regular rhythm, S1 normal heart sound present and S2 normal heart sound present RATE: regular rate RHYTHM: regular rhythm HEART SOUNDS: S1 normal heart sound present and S2 normal heart sound present GI: COMMON NORMALS: Normal to inspection, nondistended, normoactive bowel sounds present and non-tender Extremity: COMMON NORMALS: no pedal edema Neuro: COMMON NORMALS: patient oriented x3 Psych: COMMON NORMALS: mental status grossly normal Discharge Data Studies Completed and Pending Completed Studies During Hospitalization Category Date Time Status CT head wo con* [id number] Stat Cat Scan 09/29/24 20:56 Completed XR chest 1V portable [id number] Stat Exams 09/29/24 17:36 Completed US kidney bilateral [US renal BI* [id number]] Routine Ultrasound 09/30/24 05:33 Completed Pending at discharge Category Date Time Status Blood Culture Stat Lab 09/29/24 21:12 Results Complete Blood Count w/Auto AM LABS Lab 10/02/24 04:00 Ordered Comprehensive Metabolic Panel AM LABS Lab 10/02/24 04:00 Ordered Magnesium AM LABS Lab 10/02/24 04:00 Ordered Phosphorus AM LABS Lab 10/02/24 04:00 Ordered Radiology Impressions Chest X-Ray 09/29/24 17:36 IMPRESSION: No acute findings. Head CT 09/29/24 20:56 IMPRESSION: No acute intracranial hemorrhage, evidence of acute territorial infarct, or mass effect. Renal Ultrasound 09/30/24 05:33 IMPRESSION: 1. Mild chronic medical renal disease. 2. Low normal size RIGHT kidney. 3. No obstruction or mass. Laboratory Results WBC 4.87 10^3/uL (3.29-11.43) 10/01/24 04:58 RBC 4.95 10^6/uL (3.85-5.65) 10/01/24 04:58 Hgb 14.10 g/dL (11.27-16.99) 10/01/24 04:58 Hct 41.7 % (37-53) 10/01/24 04:58 MCV 84.2 fl (82-101) 10/01/24 04:58 MCH 28.5 pg (27-33) 10/01/24 04:58 MCHC 33.8 g/dL (30-55) 10/01/24 04:58 RDW 12.4 % (12.1-15.1) 10/01/24 04:58 Plt Count 175 10^3/cmm (157-399) 10/01/24 04:58 MPV 10.3 fL (7.4-10.4) 10/01/24 04:58 Neut % (Auto) 55.1 % 10/01/24 04:58 Lymph % (Auto) 35.5 % 10/01/24 04:58 [place] % (Auto) 8.8 % 10/01/24 04:58 Eos % (Auto) 0.0 % 10/01/24 04:58 Baso % (Auto) 0.2 % 10/01/24 04:58 Neut # (Auto) 2.68 10^3/uL (1.8-7.7) 10/01/24 04:58 Lymph # (Auto) 1.7 10^3/uL (0.8-4.8) 10/01/24 04:58 [place] # (Auto) 0.4 10^3/uL (0.2-0.9) 10/01/24 04:58 Eos # (Auto) 0.0 10^3/uL (0.0-0.8) 10/01/24 04:58 Baso # (Auto) 0.0 10^3/uL (0.0-0.1) 10/01/24 04:58 Nucleated RBC % (auto) 0 % 10/01/24 04:58 Nucleated RBCs # 0.0 /100WBC 10/01/24 04:58 Specimen Type Arterial 09/29/24 21:07 Sample Site Brachial, right 09/29/24 21:07 ABG pH 7.33 (7.35-7.45) L 09/29/24 21:07 ABG pCO2 27.8 mmHg (35-45) L 09/29/24 21:07 ABG pO2 80.3 mmHg (80.0-100.0) 09/29/24 21:07 ABG HCO3 14.6 mmol/L (22-26) L 09/29/24 21:07 ABG O2 Saturation 96.4 09/29/24 21:07 ABG Base Excess -9.6 mmol/L (-2.0-2.0) L 09/29/24 21:07 [place] Test N/a 09/29/24 21:07 A-a O2 Gradient 4.6 mmHg (5-10) L 09/29/24 21:07 Hematocrit 48.1 % (42-52) 09/29/24 21:07 Hgb O2 Saturation 94.7 % (95-100) L 09/29/24 21:07 Carboxyhemoglobin 1.0 %THgb (0.4-20.1) 09/29/24 21:07 Methemoglobin 0.7 % (0.4-1.5) 09/29/24 21:07 Total Hemoglobin 15.7 g/dL (14-18) 09/29/24 21:07 Sodium 133.0 mmol/L (131-143) 09/29/24 21:07 Potassium 4.7 mmol/L (3.5-5.0) 09/29/24 21:07 Glucose 298.0 mg/dL (70-115) H 09/29/24 21:07 Ionized Calcium 1.2 mmol/L (1.1-1.4) 09/29/24 21:07 O2 Delivery Device Room air 09/29/24 21:07 [employer] ID [email or web address] 09/29/24 21:07 Sodium 140 mmol/L (136-145) 10/01/24 04:58 Potassium 3.9 mmol/L (3.5-5.1) 10/01/24 04:58 Chloride 109 mmol/L (98-107) H 10/01/24 04:58 Carbon Dioxide 20 mmol/L (22-29) L 10/01/24 04:58 Anion Gap 14.9 (5-19) 10/01/24 04:58 BUN 25 mg/dL (8-23) H 10/01/24 04:58 Creatinine 0.9 mg/dL (0.7-1.2) 10/01/24 04:58 GFR Calculation Not Reportable 10/01/24 04:58 Glucose 82 mg/dL (65-115) 10/01/24 04:58 POC Glucose 226 mg/dL (70-110) H 10/01/24 11:45 Estimat Average Glucose 295 09/30/24 03:44 Hemoglobin A1c 11.9 % (4.0-6.0) H 09/30/24 03:44 Calculated Osmolality 293 mOsm/kg (285-295) 10/01/24 04:58 Lactic Acid 1.8 mmol/L (0.5-2.2) 09/29/24 21:10 Calcium 8.8 mg/dL (8.5-10.5) 10/01/24 04:58 Phosphorus 2.6 mg/dL (2.5-4.5) 10/01/24 04:58 Magnesium 1.9 mg/dL (1.7-2.3) 10/01/24 04:58 Total Bilirubin 0.6 mg/dL (0.15-1.2) 10/01/24 04:58 AST 32 U/L (0-40) 10/01/24 04:58 ALT 17 U/L (0-41) 10/01/24 04:58 Alkaline Phosphatase 61 U/L (40-130) 10/01/24 04:58 Total Protein 6.2 g/dL (6.6-8.7) L 10/01/24 04:58 Albumin 3.2 g/dL (3.5-5.2) L 10/01/24 04:58 Globulin 3.0 g/dL (1.3-4.6) 10/01/24 04:58 Lipase 43 U/L (13-60) 09/29/24 19:52 TSH 1.44 uIU/mL (0.27-4.20) 09/30/24 03:44 Urine Color Yellow (Yellow) 09/29/24 19:48 Urine Appearance Clear (CLEAR) 09/29/24 19:48 Urine pH 5.0 (5-7) 09/29/24 19:48 Ur Specific [place] 1.031 (1.005-1.030) H 09/29/24 19:48 Urine Protein Trace (Negative) A 09/29/24 19:48 Urine Glucose (UA) 3+ (Normal) H 09/29/24 19:48 Urine Ketones 1+ (Negative) H 09/29/24 19:48 Urine Blood Negative (Negative) 09/29/24 19:48 Urine Nitrate Negative (Negative) 09/29/24 19:48 Urine Bilirubin Negative (Negative) 09/29/24 19:48 Urine Urobilinogen 0.2 mg/dL (Negative) 09/29/24 19:48 Ur Leukocyte Esterase Negative (Negative) 09/29/24 19:48 Urine RBC 5-10 /hpf (0-2) H 09/29/24 19:48 Urine WBC None /hpf (0-5) 09/29/24 19:48 Ur Squamous Epith Cells 0-4 /hpf (0-5) H 09/29/24 19:48 Amorphous Sediment Not Reportable 09/29/24 19:48 Urine Bacteria Trace /hpf (NONE) 09/29/24 19:48 Urine Yeast 1+ /hpf H 09/29/24 19:48 C. difficile (PCR) Negative (Negative) 10/01/24 12:55 Vitals Last Vital Signs Temp 98.1 F 10/01/24 11:42 Pulse 77 10/01/24 11:42 Resp 15 10/01/24 11:42 BP 162/84 10/01/24 11:42 Pulse Ox 98 10/01/24 11:42 O2 Del Method Room Air 10/01/24 11:42 Discharge Plan Discharge Patient Disposition: Home Condition: Stable Prescriptions: New cefdinir 300 mg capsule 300 mg PO BID 5 Days Qty: 10 0RF Continued tramadol 50 mg tablet 50 mg PO Q6H PRN (Reason: Pain) gabapentin 300 mg capsule 300 mg PO BID hydrocodone-acetaminophen 5-325 mg tablet 2 tab PO BID glimepiride 4 mg tablet 4 mg PO BID sertraline 25 mg tablet 25 mg PO DAILY lisinopril-hydrochlorothiazide 10-12.5 mg tablet 1 tab PO DAILY dapagliflozin propanediol [Farxiga] 10 mg tablet 10 mg PO DAILY insulin glargine U-300 conc [Toujeo SoloStar U-300 Insulin] 300 unit/mL (1.5 mL) insulin pen 15 unit SUBCUT QAM Discharge Orders: Discharge Order (Routine); Ordered 10/01/24 Ordered By: Johnson Webb Referrals: Ernestine Hayden MD [Physician] - 2 weeks Mony Givens DO [Primary Care Provider] - Discharge Diet: Regular Discharge Activity: Resume usual activity Patient Instructions: Cefdinir (By mouth), Urinary Tract Infection in Men (DC), Hyponatremia (DC), Altered Mental Status (ED), Opioid Safety Activity Restrictions/Additional Instructions: -Please monitor your blood sugars closely -Monitor your blood sugars 3 times daily as after meals -Please record your blood sugars, and a blood sugar log -If your blood sugar is greater than 500 go to the emergency room -If your blood sugar is less than 60 or at anytime you feel lightheaded or dizzy or diaphoretic or have chest palpitations check your blood sugar, and eat a hard candy or drink orange juice and go immediately to the emergency room -Remember hypoglycemia kills, so if his blood sugar is less than 60 we have to increase it by taking in a sugary meal such as a hard candy or orange juice and go to the emergency room -If you have any questions please call us where here to -Please follow-up with Dr. Hayden in 2 weeks -See primary care provider in 1 week? Discharge Attestations Time Spent in Discharge Care*: greater than 30 min Quality Metrics Clinical Quality Measures [ No reported AMI, CVA or VTE this stay] Coding Level of Care Code 96654 Total time (in minutes) for Discharge: 45 Diagnoses Acute renal insufficiency N28.9 Poorly controlled diabetes mellitus E11.65 Hyponatremia E87.1
[2024-10-01 15:29] VITALS: BP 162/84; PULSE 77; RESP 15; TEMP 36.7; O2SAT 98
--- NOTE | 2024-10-01 15:30 | PC.NURSE ---
Discharge paperwork discussed with patient. All questions answered. Patient educated to call PCP's office if he hasn't heard from office for follow-up appointment in two business days. IV removed. Patient wheeled to entrance at 1530 with all belongings.
== END 2024-10-01 15:30 | disposition home or self-care (01) | DRG 683 ==
LOC: ER 21:52 → MEDSURG 22:37
PROVIDERS: Emergency Medicine; Admitting Provider Internal Medicine; Emergency Provider Emergency Medicine; PCP Family Medicine; Visit Provider Family Medicine
DX: N17.9 Acute kidney failure, unspecified (principal); E87.1 Hypo-osmolality and hyponatremia; N39.0 Urinary tract infection, site not specified; E11.65 Type 2 diabetes mellitus with hyperglycemia; E86.1 Hypovolemia; I95.1 Orthostatic hypotension; E86.0 Dehydration; Z79.4 Long term (current) use of insulin; R07.9 Chest pain, unspecified; Z79.84 Long term (current) use of oral hypoglycemic drugs; Z79.85 Long-term (current) use of injectable non-insulin antidiabetic drugs; Z79.891 Long term (current) use of opiate analgesic; Z96.651 Presence of right artificial knee joint; G47.00 Insomnia, unspecified
CPT/HCPCS: 36415; 36416; 36600; 70450; 71045; 76770; 80051; 80053; 81001; 82330; 82805; 82962; 83036; 83605; 83690; 83735; 84100; 84443; 85025; 87040; 87086; 87493; 93005; 96372; 99285; J0696; J1650; J1815; J2405; J7030